=== PATIENT | male | born 1985 | race Caucasian/White ===

== ENCOUNTER 2022-08-23 07:05 | Day surgery (SDC) | payer OTHER ==
[2022-08-23] VITALS (205 sets, daily range): BP systolic 74–161; BP diastolic 41–111
[~2022-08-23] VITALS: Ht 170.2 cm; Wt 120.0 kg
--- NOTE | 2022-08-23 07:05 | NUR ---
Patient arrived to the ANR suite with fiance, identification and demographics confirmed. Patient to room 10, AAO, ambulatory, vitals obtained, ID/allergy/fall bands placed, changed into hospital gown, EDGAR hose, and non-slip socks. Procedure and timeline explained for treatment and discharge. All questions answered and the patient presents no concerns at this time.
--- NOTE | 2022-08-23 07:35 | NUR ---
Dr. Martinez telephoned with patient intake information including usage, dose, last dose/time taken and initial vital signs. Patient history and allergies reviewed with MD. Orders received for 10 + 5 PRN mg PO Valium and 0.3 mg PO Clonidine now. Will reassess per protocol in 1.5 hours and update MD withassessment and vitals.
--- NOTE | 2022-08-23 08:00 | NUR ---
Patient medicated per MD orders. In addition to Clonidine and Valium, patient received 1000 mcg B12 PO, 20 mg Pepcid PO, and Scopolamine TD patch. Medication indication and education provided prior to adminstration.
[2022-08-23 08:14] LABS: BASO% 0.4 % (0-3); EOS% 4.4 % (0-8); HEMATOCRIT 57.1 % (39.0-50.0); HEMOGLOBIN 18.8 g/dl (14.0-18.0); IMMATURE GRANULOCYTES 0.7 % (0.0-5.0); LYMPH% 33.1 % (15-41); MEAN CELL VOLUME 89.2 fL CALC (80.0-100.0); MEAN CORPUSCULAR HGB 29.4 pG CALC (26.0-32.0); MEAN CORPUSCULAR HGB CONC 32.9 g/dL CAL (32.0-36.0); MONO% 9.9 % (2-13); NEUT# 4.87 thou/uL (1.82-7.42); NEUT% 51.5 % (42-76); RED BLOOD COUNT 6.4 mill/uL (4.70-6.10); RED CELL DISTRI WIDTH 13.7 % (11.5-15.5)
[2022-08-23] MEDS ORDERED: LISINOPRIL10 MG PO (08:21)
[2022-08-23] MEDS ORDERED: HYDROCHLOROT25 MG PO (08:21)
[2022-08-23] MEDS ORDERED: MITIGARE0.6 MG (08:21)
[2022-08-23 08:30] LABS: ALBUMIN 4.4 g/dL (3.2-5.0); ALKALINE PHOSPHATASE 45 u/l (38-126); ANION GAP 11 (6-22 (CALC)); BUN 14 mg/dL (9-20); BUN/CREATININE RATIO 13 (12-20 (CALC)); CARBON DIOXIDE 33 mmol/l (22-30); CHLORIDE 100 mmol/l (95-108); CREATININE 1.1 mg/dL (0.7-1.3); GFR FOR AFR.AMER. > 60 ML/MIN (>=60 (CALC)); GFR OTHER RACES > 60 ML/MIN (>=60 (CALC)); POTASSIUM 4.3 mmol/l (3.5-5.1); SGOT/AST 137 u/l (17-59); SODIUM 139 mmol/l (137-146); TOTAL PROTEIN 7.2 g/dL (6.3-8.2)
--- NOTE | 2022-08-23 08:35 | NUR ---
Patient resting comfortably in bed. Easily aroused, maintains focus, and drifts back to sleep. No signs of active withdrawal or distress noted at this time. Continuous SPO2, rhythm, and respiratory monitoring initiated. IVF @ 250 mL/HR, room air, VSS.
--- NOTE | 2022-08-23 09:10 | NUR ---
Patient resting comfortably in bed. Easily aroused, maintains focus, and drifts back to sleep. No signs of withdrawal or distress noted at this time.
--- NOTE | 2022-08-23 09:30 | NUR ---
MD updated with 1.5 hour reassessment. Patient sleeping and vital signs are within pre-treatment parameters. No additional Clonidine or Valium at this time. Continuous monitoring in place.
--- NOTE | 2022-08-23 11:20 | NUR ---
Induction Note Patient to ANR procedure room. Time out performed at 1120. Patient placed on monitors, Lawrence hugger, bilateral wrist restraints applied for ET tube protection. Versed 5mg given IV push at 1121 Tourniquet applied to RIGHT arm Lidocaine 100mg given at 1122 IV push followed by Rocoronium 10mg at 1123 IV push and held for 90 seconds. Propofol bolus of 200mg given at 1125 IV push. Succinylcholine 100mg given IV push at 1126. Smooth intubation with 7.5 ETT. Positive CO2. Positive Auscultation for air exchange. Patient placed on ventilator for spontaneous ventilation. Placed on Propofol IV drip at 1127. OG inserted. Positive air on auscultation. Positive gastric content. Stomach washed at this time.
--- NOTE | 2022-08-23 11:55 | NUR ---
OG close note Stomach washed at this time. Naltrexone 50 mg with Clonidine 0.1 mg via OG tube. OG will be clamped for 45 minutes.
--- NOTE | 2022-08-23 12:40 | NUR ---
OG open note OG open at this time. Gastric content draining into drainage bag. OG to drain for 45 minutes. Propofol will be titrated down based on patient.
--- NOTE | 2022-08-23 13:30 | NUR ---
OG close note Stomach washed at this time. Naltrexone 50 mg with Clonidine 0.2 mg via OG tube. OG will be clamped for 45 minutes.
[2022-08-23] MEDS ORDERED: NALTREXONE50 MG PO (13:37)
[2022-08-23] MEDS ORDERED: KLONOPIN2 MG PO (13:38)
[2022-08-23] MEDS ORDERED: CLONIDINE0.1 MG PO (13:38)
--- NOTE | 2022-08-23 14:15 | NUR ---
OG open note OG open at this time. Gastric content draining into drainage bag. OG to drain for 45 minutes. Propofol will be titrated down based on patient.-
--- NOTE | 2022-08-23 15:05 | NUR ---
OG close note Stomach washed at this time. Naltrexone 50 mg with Clonidine 0.1 mg via OG tube. OG will be clamped for 45 minutes.
--- NOTE | 2022-08-23 16:35 | NUR ---
OG close note Stomach washed at this time. Naltrexone 12.5 mg with Clonidine 0.1 mg via OG tube. OG will be clamped for 45 minutes.
--- NOTE | 2022-08-23 17:15 | NUR ---
Extubation note Closing medications given Benadryl 50mg IV push, Decadron 10mg IV push,Magnesium 4 grams IV, Zofran 8mg IV push, Octreotide 100mcg SC. Stomach washed out prior to extubation. Suctioned gastric content. OG removed. Patient extubated. Propofol Discontinued. Wrist restraints removed. Lawrence hugger Removed. See ANR Moderate sedate recovery record for further notes and assessment.
--- NOTE | 2022-08-23 19:36 | NUR ---
PATIENT REMAINS IN ANR SUITE. EXTREMELY AGITATED AND COMBATIVE. CPAP PLACED BY RESPIRATORY AT THIS TIME.
--- NOTE | 2022-08-23 20:00 | NUR ---
PT GIVEN ZYPREXA 5MG IM FOR SEVERE AGITATION PER V/O DR GONZALES. PT O2 SAT 100% ON CPAP, AGITATION SLIGHTLY IMPROVED. PT TRANSPORTED ON CPAP VIA STRETCHER TO ICU. PT CLEANSED OF URINARY INCONTINENCE AND MADE COMFORTABLE IN ICU ON CPAP. RT AT BEDSIDE. BEDSIDE REPORT TO ICU NURSE.
--- NOTE | 2022-08-23 20:30 | NUR ---
PT CONTINUES TO SWING ARMS AIMLESSLY. GIVEN REPEAT DOSE OF ZYPREXA 5MG IM PER ORDER DR GONZALES. ICU NURSE AND RT ALSO AT BEDSIDE. PT MAINTAINS OO2 SAT 100% ON CPAP AND VSS.
--- NOTE | 2022-08-23 20:30 | NUR ---
Pt transfered from ANR unit confused, violent, confused and aggitated, trying to get out of bed, pulling on lines and equipment. In restraints and very restless and trying to pull on lines and tubing, kicking in the bed. Medicated as per MD orders. Monitoring.
--- NOTE | 2022-08-23 23:14 | NUR ---
1963 Vianney Kaufman spoke to dr Martinez and updated him on the pt condition and HR45 and being aggitated and trying to get out of bed. Pt is on the BI-PAP. TOLD HIM WHAT MEDICATIONS WE HAVE GIVEN HIM TILL NOW AND HE SAID TO GIVE HALDOL ONLY. CONTINUE TO MONITOR PT.
--- NOTE | 2022-08-23 23:30 | NUR ---
CHLOE JACOBS CALLED DR GONZALES AND TOLD HIM ABOUT THE PT CONDITION NOT IMPROVING AND THAT PT RHYTHM CHANGES FROM SR TO 2ND DEGREE AV BLOCK TYPE 2. SENT HIM A COPY OF THE EKG. BP 143/99, O2 98, AND HR 82. PT CONFUSED AND RESTLESS, AGGITATED. CONTINUE TO MONITOR.
[2022-08-24 00:01] VITALS: BP 129/108
--- NOTE | 2022-08-24 02:06 | NUR ---
PT IS RESTLESS, CONFUSED AND DISORIENTED TO TIME PLACE AND PERSON. STABLE VS'S.
[2022-08-24 05:33] LABS: BASO% 0.1 % (0-3); EOS% 0.1 % (0-8); HEMOGLOBIN 18.4 g/dl (14.0-18.0); IMMATURE GRANULOCYTES 0.8 % (0.0-5.0); LYMPH% 4.9 % (15-41); MEAN CELL VOLUME 86.1 fL CALC (80.0-100.0); MEAN CORPUSCULAR HGB 29.3 pG CALC (26.0-32.0); MEAN CORPUSCULAR HGB CONC 34.1 g/dL CAL (32.0-36.0); MONO% 5.4 % (2-13); NEUT# 13.2 thou/uL (1.82-7.42); NEUT% 88.7 % (42-76); RED BLOOD COUNT 6.27 mill/uL (4.70-6.10); RED CELL DISTRI WIDTH 13.3 % (11.5-15.5)
--- NOTE | 2022-08-24 05:38 | NUR ---
PATIENT CONFUSED AND DISORIENTED ALL NIGHT, PULLING ON TUBES AND LINES, TRYING TO GET OUT OF BED. VS'S STABLE, ON BIPAP ALL NIGHT, NON-COMPLIANT WITH MEDICAL TREATMENT, MEDICATED NEEDED FOR AGGITATION. HIT ME WHEN WAS PULLING HIM UP IN BED. DR GONZALES UPDATED ON PT CONDITION THRUOUT THE NIGHT..
[2022-08-24 05:42] LABS: ALBUMIN 4.4 g/dL (3.2-5.0); ALKALINE PHOSPHATASE 45 u/l (38-126); ANION GAP 15 (6-22 (CALC)); BILIRUBIN, TOTAL 1.2 mg/dL (0.2-1.3); BUN 12 mg/dL (9-20); BUN/CREATININE RATIO 14 (12-20 (CALC)); CHLORIDE 107 mmol/l (95-108); CREATININE 0.9 mg/dL (0.7-1.3); GFR FOR AFR.AMER. > 60 ML/MIN (>=60 (CALC)); GFR OTHER RACES > 60 ML/MIN (>=60 (CALC)); MAGNESIUM 2.1 mg/dL (1.6-2.3); POTASSIUM 4.8 mmol/l (3.5-5.1); SGOT/AST 122 u/l (17-59); SODIUM 140 mmol/l (137-146); TOTAL PROTEIN 7.4 g/dL (6.3-8.2)
[2022-08-24 05:46] LABS: CARBON DIOXIDE 23 mmol/l (22-30)
[2022-08-24 07:00] VITALS: BP 149/73
--- NOTE | 2022-08-24 07:30 | NUR ---
restraints discontinued. pt is no longer aggressive. pt got up to the bedside commode and had a large bm. pt able to hold a conversation. pt is drinking water and took medication.
--- NOTE | 2022-08-24 07:30 | NUR ---
Patient's support person (SP) telephoned with overnight update and to begin discharge planning. All questions answered satisfactorily, no concerns presented. SP agreeable to discharge plan.
--- NOTE | 2022-08-24 08:15 | NUR ---
Dr. Martinez telephoned and updated with overnight events and PRN medications, morning labs and vital signs, ANR help desk supportlogistics administrator and current progress on discharge requirements. Expected discharge today. Discharge plan in progress.
--- NOTE | 2022-08-24 08:32 | NUR ---
pt refused breakfast and stated he is "not hungry yet." pt is on ra. pt uses urinal and bedside commode. skin is intact.
--- NOTE | 2022-08-24 09:16 | NUR ---
Patient to be transferred from ICU 5 to [facility]. Patient alert, conversive, tolerating PO H2O, declines food at this time. CPAP/restraints discontinued. Nasal O2 in place. Spoke with REYNALDO Singh and REYNALDO Myers all agree to updated POC.
--- NOTE | 2022-08-24 09:53 | NUR ---
R'CD REPORT FROM REYNALDO MEDEROS. POT IS AROUABLE TO VERBAL STIMULI, PT IS ON RA, TELE ATTACHED, VS ASSESSED, BED ALARM IS ACTIVE, WILL CONTINUE TO MONITOR.
[2022-08-24 10:30] VITALS: BP 123/68
--- NOTE | 2022-08-24 10:33 | NUR ---
PT AMBULATED TO BATHROOM WITH NO ASSISTANCE NEEDED. PT HAS REMOVED LAST IV ACCESS, PT BEING MONITORED.
--- NOTE | 2022-08-24 12:30 | NUR ---
Dr. Martinez to bedside for post-procedure evaluation. Report from REYNALDO Mir. Discharge process reviewed, discharge requirements discussed with patient including ambulation, tolerance of food and oral fluids, and personal hygeine. Cleared for discharge after 1600.
--- NOTE | 2022-08-24 13:08 | NUR ---
PT IS AWAKE AND REQUESTING TO SHOWER. PT IS RECEIVING MINIMAL ASSISTANCE, PT IS DOING WELL, AND STATES HE IS READY TO GO. PT HAS BEEN ADVISED OF D/C PLANNING. WILL CONTINUE TO MONITOR.
[2022-08-24 13:47] VITALS: BP 109/72
--- NOTE | 2022-08-24 17:13 | NUR ---
Patient discharged in stable condition. Reports no nausea, tolerated PO intake, ambulatory with stable gait. IV's removed. Patient remained alert and conversive during discharge teaching. Support person states undestanding of discharge instructions and offers no further questions. Medication education given at length and patient and SP stated understanding.
== END 2022-08-24 16:51 | disposition home or self-care (01) | DRG 897 ==
LOC: MS2 07:05 → ANR 07:05 → ICU 20:50 → MS2 20:50 → ICU 08-24 09:37 → MS2 08-24 09:37 → ANR 08-24 16:51
PROVIDERS: ATTEND Anesthesiology Critical Care Medicine
DX: F11.20 Opioid dependence, uncomplicated (principal)
CPT/HCPCS: J0131; J2060; J2354; J3475; S0166